=== PATIENT | male | born 1980 | race Caucasian/White ===

== ENCOUNTER → 2020-07-15 11:58 | Outpatient (CLI) | payer BC, SELFPAY ==
[2020-07-16 13:46] LABS: Covid-19 Nasal PCR Sendout Lex Positive
== END ==
PROVIDERS: PCP Family Medicine; Visit Provider Nurse Practitioner
DX: Z20.828 Contact with and (suspected) exposure to other viral communicable diseases (principal); U07.1 COVID-19
CPT/HCPCS: U0004

== ENCOUNTER 2020-10-21 10:03 | Emergency (ER) | payer OTHER, BC, SELFPAY ==
[2020-10-21 10:05] VITALS: BP 153/99; PULSE 102; RESP 20; TEMP 36.6; O2SAT 97; BMI 42.0
--- NOTE | 2020-10-21 10:15 | HMH.EDBACK ---
ED Disposition Clinical Impression: Back pain Qualifiers: Back pain location: low back pain Chronicity: acute Back pain laterality: left Sciatica presence: without sciatica Qualified Code(s): M54.5 - Low back pain Disposition: Home, Self-Care Condition on Discharge: Good Instructions: DI for Low Back Pain Prescriptions: Cyclobenzaprine HCl [Flexeril 10mg tablet] 10 mg PO TID PRN #6 tab PRN Reason: spasm Prescription Printed Naproxen 500 mg PO BID PRN #10 tab PRN Reason: pain Prescription Printed Referrals: Melinda Cardoso APRN [Primary Care Provider] - - Critical Care Critical Care Time: No Attestation: On 10/21/20, the high probability of a clinically significant, sudden or life threatening deterioration of the following system(s) required my full and direct attention, intervention and personal management. The time I documented below is in addition to time spent performing reported procedures but includes the following listed in this critical care notation. Medical Decision Making - Medical Records Medical records reviewed: Yes: I reviewed the patient's medical records. - Anil Inquiry Pt receiving controlled substance: No Orders (Tests/Meds): ED MEDICATIONS Generic Name Dose Route Start Last Admin Trade Name Freq PRN Reason Stop Dose Admin Ketorolac Tromethamine 60 mg 10/21/20 10:14 Ketorolac 60mg/2ml Vial IM 10/21/20 10:15 ONCE ONE Medical Decision Narrative: Patient with left lower back pain while bending over attempting to install snow chains yesterday. Suspect musculoskeletal etiology. No CVA tenderness, urinary symptoms, fever vomiting that would suggest obstructive uropathy or urinary tract infection. He does not have any symptomology consistent with cauda equina. No blunt trauma, low suspicion for fracture. Have suggested conservative management and follow-up with PCP within several days if symptoms or not improving for further work-up, imaging, management if necessary. Back Pain HPI - General Stated Complaint: lower back pain Time Seen by Provider: 10/21/20 10:15 Mode of Arrival: Ambulatory Source of Information: Patient Limitations: No Limitations - History of Present Illness HPI Narrative: This is a 39-year-old male who presents to the emergency department for left lower back pain that started yesterday while he was putting snow chains on a work vehicle. He states he was bending over and the pain hit him suddenly. No urinary symptoms, flank pain, fever, nausea or vomiting. He has been trying to use Tylenol with no relief of symptoms. Pain is worse when he bends over. He has had minor symptoms like this before in the past, but symptoms have always resolved within a few minutes and this has been more persistent. He denies any lateralizing motor or sensory changes. No numbness or weakness in his legs. No loss of bowel or bladder control. No vertebral tenderness. - Related Data Previous Rx's Medication Instructions Recorded Cyclobenzaprine HCl [Flexeril 10mg 10 mg PO TID PRN #6 tab 10/21/20 tablet] Naproxen 500 mg PO BID PRN #10 tab 10/21/20 Allergies Allergy/AdvReac Type Severity Reaction Status Date / Time penicillin G [PENICILLIN G] Allergy Intermediate I-HIVES Unverified 08/28/17 14:36 [facility] History - Hepatitis A Screen Attestation statement:: This patient has been screened for Hepatitis A risk factors. I have reviewed the patient's past medical history: Yes (Noncontributory) ROS Obtained: Yes All systems reviewed & no additional complaints Physical Exam - General General appearance: alert, in no apparent distress - Head Head exam: atraumatic, normocephalic, normal inspection - Neck Neck exam: Present: normal inspection, trachea midline. Absent: tenderness - Respiratory Respiratory exam: Present: normal lung sounds bilaterally. Absent: respiratory distress - Cardiovascular Cardiovascular exam: Present: re
[2020-10-21 10:43] VITALS: BP 149/102; PULSE 96; RESP 20; TEMP 36.6; O2SAT 100
== END 2020-10-21 10:44 | disposition home or self-care (01) ==
PROVIDERS: Emergency Provider Emergency Medicine; PCP Nurse Practitioner
DX: M54.5 Low back pain (principal); X50.0XXA Overexertion from strenuous movement or load, initial encounter; Y92.019 Unspecified place in single-family (private) house as the place of occurrence of the external cause
CPT/HCPCS: 96372; 99281

== ENCOUNTER → 2022-01-06 09:14 | Outpatient (CLI) | payer BC, SELFPAY ==
--- NOTE | 2022-01-06 09:32 | XR_ITS ---
FINAL REPORT CLINICAL HISTORY: RT SIDED MID BACK PAIN FINDINGS: THORACIC SPINE SERIES. Three views were obtained. There is no acute fracture. There are [id number] hypertrophic changes at the midthoracic spine. There is no malalignment. There is less than 10 degrees of thoracic scoliosis convex to the right. IMPRESSION: [id number] hypertrophic change in the midthoracic spine. Reviewed, Interpreted and Dictated by Hitesh Maya MD Transcribed by Jarad Baker Authenticated by Hitesh Maya MD on 01/06/2022 11:04:32 AM [facility]
--- NOTE | 2022-01-06 09:32 | XR_ITS ---
FINAL REPORT CLINICAL HISTORY: RT FLANK PAIN FINDINGS: SINGLE VIEW ABDOMEN A single view of the abdomen was obtained. There is a nonobstructive bowel gas pattern. There are no abnormally dilated loops of small bowel. No abnormal calcifications are identified. Hypertrophic changes are noted at the right acetabular margin. IMPRESSION: Nonobstructive bowel gas pattern. Reviewed, Interpreted and Dictated by Hitesh Maya MD Transcribed by Jarad Baker Authenticated by Hitesh Maya MD on 01/06/2022 11:04:33 AM [facility]
== END ==
PROVIDERS: PCP Nurse Practitioner Family; Visit Provider Nurse Practitioner Family
DX: M54.6 Pain in thoracic spine (principal); R10.9 Unspecified abdominal pain; N20.0 Calculus of kidney
CPT/HCPCS: 72072; 74018

== ENCOUNTER 2024-08-15 07:21 | Emergency (ER) | payer BC, SELFPAY ==
[2024-08-15] VITALS (12 sets, daily range): BP systolic 106–137; BP diastolic 61–100; PULSE 78–107; RESP 18–20; TEMP 36.6–36.7; O2SAT 96–99; BMI 43.4
--- NOTE | 2024-08-15 07:49 | XR_ITS ---
FINAL REPORT CLINICAL HISTORY: acute right shoulder pain COMPARISON: None FINDINGS: RIGHT SHOULDER: 3 views of the right shoulder were obtained. There is no acute fracture or dislocation. Mild acromioclavicular degenerative changes are present. There is no soft tissue abnormality. IMPRESSION: Mild acromioclavicular degenerative change, with no acute fracture Reviewed, Interpreted and Dictated by Saurav Castrejon III, MD Transcribed by Shelly Phelps Authenticated and [facility]
[2024-08-15] MEDS: KETOROLAC 30MG/ML VIAL 30 MG IM (07:57)
[2024-08-15] MEDS: METHOCARBAMOL 500MG TABLET 500 MG PO (07:58)
[2024-08-15] MEDS: ACETAMINOPHEN 500MG TAB 1000 MG PO (07:58)
[2024-08-15] MEDS: LIDOCAINE 5% TRANSDERMAL PATCH 1 EACH TP (07:58)
--- NOTE | 2024-08-15 08:00 | PC.NURSE ---
pt returned from radiology
--- NOTE | 2024-08-15 08:29 | ED_ITS ---
Discharge Plan Disposition Patient Disposition: Home, Self-Care Condition: Good Chief Complaint: PAIN Prescriptions Prescriptions: New lidocaine [Lidoderm] 5 % adhesive patch,medicated 1 patch topical Q12 Qty: 5 0RF Rx Instructions: 1 patch topically; up to 12 hours at area of pain ketorolac 10 mg tablet 10 mg PO Q8H PRN (Reason: pain) 5 Days Qty: 15 0RF methocarbamol 500 mg tablet 500 mg PO Q8H PRN (Reason: pain, mild) 5 Days Qty: 15 0RF No Action cyclobenzaprine 10 MG tablet 10 mg PO TID PRN (Reason: spasm) Qty: 6 0RF naproxen 500 MG tablet 500 mg PO BID PRN (Reason: pain) Qty: 10 0RF Referrals Follow up/Referrals: Franny Murphy MD [Primary Care Provider] - See instructions Activity Restrictions/Add. Instructions Additional Instructions/Restrictions: As discussed please take medication as prescribed, follow-up with your primary care provider as needed. Return to ED if symptoms worsen. Do not take Robaxin prior to work or driving as it can make you tired. Clinical Impressions Clinical Impression: Acute pain of right shoulder Print Language Print Language: Nigerian Discharge ED Provider: Lionel Schaffer General Adult HPI General Chief complaint: PAIN Stated complaint: Pain in R shoulder-no accident Time Seen by Provider: 08/15/24 07:22 Mode of Arrival: Ambulatory Source of Information: Patient Limitations: No Limitations Description of Symptoms (Recalled from ER Triage Doc. by RN): pt woke up yesterday with sore stiff right shoulder, pt has been having back pain and sleeping in a different position which caused the shoulder issue he believes History of Present Illness HPI narrative: 43-year-old male without significant past medical history presents to ED with complaint of right arm pain primarily at shoulder with decreased range of motion. Denies trauma or injury. 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 States that yesterday morning went to work was having to do a lot of pulse and pull motions with his arm causing some soreness which has increased to level of pain today. Patient denies significant pain while at rest however states it is painful to move. Denies chest pain, neck pain, shortness of breath, abdominal pain, any other symptoms at this time. Has tried Tylenol last night with some improvement. Please note that above description of symptoms, in this electronic medical record under categorization of recalled from ER triage doctor by RN are reflective of an initial nursing assessment, however, is not reflective of my full history and physical exam that was personally taken and clarified. Consequentially, this preceding description of symptoms, which may include the patient's categorized chief complaint in the EMR, do not reflect my personal clinical impression, and the ultimate description of history of present illness and patient stated complaints should be deferred to this section of the note. Unless stated otherwise or congruent with this section of the note, additional signs, symptoms, or incongruence should be interpreted as inaccurate with my clinical impression. Related Data Previous Rx's ?Medication ?Instructions ?Recorded cyclobenzaprine 10 mg tablet 10 mg PO TID PRN spasm #6 tabs 10/21/20 naproxen 500 mg tablet 500 mg PO BID PRN pain #10 tabs 10/21/20 ketorolac 10 mg tablet 10 mg PO Q8H PRN pain 5 days #15 08/15/24 tabs lidocaine 5 % topical patch 1 patch topical Q12 #5 ea 08/15/24 (Lidoderm) methocarbamol 500 mg tablet 500 mg PO Q8H PRN pain, mild 5 08/15/24 days #15 tabs Allergies Allergy/AdvReac Type Severity Reaction Status Date / Time penicillin G (PENICILLIN G) Allergy Intermediate I-HIVES Verified 08/15/24 07:53 [facility] Disclaimer: The information contained in this section may have been updated after the patient was seen, as this information can be updated by other users. Social History Smoking Status: Never smoker alcohol intake: former current occupational status: employed Travel in the last 8 weeks: None Other Medical History Have you received the Flu Vaccine for this season: No Have you received the Pneumonia Vaccine: No ROS Obtained: Yes Systems reviewed as appropriate & no additional complaints except as documented Physical Exam General General appearance: alert and in no apparent distress Head Head exam: atraumatic, normocephalic and normal inspection Eye Eye exam: Present normal appearance, PERRL and EOMI ENT ENT exam: Present normal exam, normal oropharynx, mucous membranes moist, TM's normal bilaterally and normal external ear exam Neck Neck exam: Present normal inspection, full ROM and trachea midline; Absent meningismus or lymphadenopathy Chest Chest inspection: Present normal inspection and symmetric chest wall rise; Absent tenderness Respiratory Respiratory exam: Present normal lung sounds bilaterally; Absent respiratory distress Cardiovascular Cardiovascular exam: Present regular rate, normal rhythm and other (Pulses intact at radial); Absent JVD Abdominal Exam Abdominal exam: Absent distention Extremities Exam Extremities exam: Present normal inspection, tenderness (Tenderness reproducible at right anterior deltoid and right lateral deltoid. No noted injury on physical inspection, no instability, no deformity) and normal capillary refill; Absent full ROM (Decreased range of motion at right shoulder due to pain) Back Exam Back exam: Present normal inspection; Absent tenderness Neurological Exam Neurological exam: Present alert, oriented X3 and other (Sensory intact and equal in bilateral upper extremities); Absent motor sensory deficit Psychiatric Psychiatric exam: Present normal affect and normal mood Skin Skin exam: Present warm, dry, intact and normal color Lymphatic Lymphatic Findings: no adenopathy Medical Decision Making Medical Records Screening: Per USPSTF and CDC recommendations, given the prevalence of disease in our region, it is our hospital?s policy to screen for HIV and viral Hepatitis for all patients aged 18 and over and those with ongoing risk factors. Anil Inquiry Pt receiving controlled substance: No Vital Signs: 08/15/24 07:22 08/15/24 07:52 08/15/24 08:00 Temperature 97.9 F Temperature Source Oral Pulse Rate 91 H 107 H Pulse Rate [Left Radial] 92 H Respiratory Rate 20 Blood Pressure Blood Pressure [Right Arm] 135/86 Blood Pressure Mean Blood Pressure Mean [Right Arm] 102 02 Sat by Pulse Oximetry 99 97 96 Oxygen Delivery Method Room Air 08/15/24 08:01 08/15/24 08:15 08/15/24 08:30 Temperature Temperature Source Pulse Rate 96 H 88 87 Pulse Rate [Left Radial] Respiratory Rate Blood Pressure 137/100 H 130/86 Blood Pressure [Right Arm] Blood Pressure Mean Blood Pressure Mean [Right Arm] 02 Sat by Pulse Oximetry 98 97 97 Oxygen Delivery Method 08/15/24 08:45 08/15/24 09:01 08/15/24 09:31 Temperature Temperature Source Pulse Rate 80 88 81 Pulse Rate [Left Radial] Respiratory Rate Blood Pressure 110/61 106/67 L Blood Pressure [Right Arm] Blood Pressure Mean Blood Pressure Mean [Right Arm] 02 Sat by Pulse Oximetry 97 97 97 Oxygen Delivery Method 08/15/24 10:00 Temperature Temperature Source Pulse Rate 78 Pulse Rate [Left Radial] Respiratory Rate Blood Pressure 111/63 Blood Pressure [Right Arm] Blood Pressure Mean 74 Blood Pressure Mean [Right Arm] 02 Sat by Pulse Oximetry 97 Oxygen Delivery Method Orders (Tests/Meds): ED MEDICATIONS Discontinued Medications Generic Name Dose Route Start Last Admin Trade Name Abyb PRN Reason Stop Dose Admin Acetaminophen 1,000 mg 08/15/24 07:49 08/15/24 07:58 Acetaminophen 500mg Tab PO 08/15/24 07:50 1,000 mg ONCE ONE Administration Ketorolac Tromethamine 30 mg 08/15/24 07:49 08/15/24 07:57 Ketorolac 30mg/Ml Vial IM 08/15/24 07:50 30 mg ONCE ONE Administration Lidocaine 1 each 08/15/24 07:49 08/15/24 07:58 Lidocaine 5% Transdermal Patch TP 08/15/24 07:50 1 each ONCE ONE Administration Methocarbamol 500 mg 08/15/24 07:49 08/15/24 07:58 Methocarbamol 500mg Tablet PO 08/15/24 07:50 500 mg ONCE ONE Administration ORDERS Category Date Time Status Shoulder XR right miminum 2 views [XR shoulder RT min Exams 08/15/24 07:49 Completed 2V] Stat Medical Decision Narrative: Patient with history and exam per above presenting for evaluation of right shoulder and proximal right arm pain Diagnoses considered include fracture, dislocation, musculoskeletal pain, overuse injury, muscle strain, ligamentous injury ED workup and treatment included: As above Imaging was independently visualized and interpreted by me, significant for no noted fracture or dislocation of imaged right upper extremity. Please refer to radiology report for full details. My clinical impression at this time is most consistent with musculoskeletal pain, muscle strain. Prescribing Robaxin, Toradol, Lidoderm patch. Patient to follow-up with primary care provider as needed. Given instructions to return to ED if symptoms worsen. Patient agrees with this plan. Discharged home with hemodynamically stable vitals I discussed my clinical impression with patient and answered all questions. At this time, the evidence for any other entities in the differential is insufficient to warrant any further testing or ED observation. This was explained to the patient. The patient was advised that persistent or worsening symptoms require further evaluation. Critical Care Critical Care Time Critical Care Time: No
--- NOTE | 2024-08-15 10:41 | PC.NURSE ---
Dr. Schaffer at bedside
== END 2024-08-15 10:53 | disposition home or self-care (01) ==
PROVIDERS: Emergency Provider Student in an Organized Health Care Education/Training Program; PCP Family Medicine
DX: M25.511 Pain in right shoulder (principal); M54.9 Dorsalgia, unspecified
CPT/HCPCS: 73030; 96372; 99283; J1885